=== PATIENT | male | born 1935 ===

== ENCOUNTER 2018-05-23 08:04 | Outpatient (RCR) | payer MEDICARE, OTHER, SELFPAY ==
--- NOTE | 2018-05-23 09:18 | PTTR_ITS ---
DATE: 05/23/18 SUBJECTIVE: Patient states that he is doing okay today and has found that the exercises are helpful when he performs them. He still has intermittent pain at times but can manage. OBJECTIVE: Manual therapy: ([id number]): Patient was first assessed for movement quality through both the right and left knee and hip. His hip motion appears sound to end limit of both rotations internal and external and hip flexion to 95 degrees. His knee motion is sound for terminal lock out at the right without pain and knee flexion on the right to 130 degrees approximately. Patient then assessed through the left knee with terminal lock out having some mild pain but he is able to approximate to 0 degrees. His knee flexion is mildly limited just shy of the contralateral limb with mild tenderness over the superior pole of the patella. He is then mobilized with light long axis traction through the ankle, knee and hip of the left lower extremity. Mild active isolated stretching is performed through the left hamstrings and patient placed in sitting. From sitting he is mobilized with anterior glide of the tibia on a fixed femur and tibial torsion mobilized through the limits of internal and external tibial rotation. Gentle 10-60 degree knee ROM is performed before patient returning to standing. Direct treatment time: 30 minutes of direct patient care.
== END 2018-06-13 23:59 | disposition home or self-care (01) ==
LOC: PT 08:04
PROVIDERS: Referring Provider Orthopaedic Surgery; Visit Provider Orthopaedic Surgery
DX: M25.562 Pain in left knee (principal); M17.12 Unilateral primary osteoarthritis, left knee
CPT/HCPCS: 97140

== ENCOUNTER 2022-04-05 13:30 | Outpatient (REF) | payer MEDICARE, OTHER, SELFPAY ==
[2022-04-05 16:08] LABS: ALT 23 U/L (16-63); AST 25 U/L (15-37); Albumin 3.8 g/dL (3.4-5.0); Alkaline Phosphatase 57 U/L (46-116); BUN 29 mg/dL (7-18); Bilirubin, Total 0.9 mg/dL (0.2-1.0); CREATININE 1.5 mg/dL (0.70-1.30); Calcium 9.7 mg/dL (8.5-10.1); Chloride 100 mmol/L (98-107); Estimated GFR 44.48 (mL/min/1.73m2); Glucose 104 mg/dL (74-106); Potassium 4.4 mmol/L (3.5-5.1); Sodium 135 mmol/L (136-145); Total Protein 7.3 g/dL (6.4-8.2)
== END 2022-04-05 13:31 | disposition home or self-care (01) ==
LOC: NCHCN 13:30
PROVIDERS: Visit Provider Nurse Practitioner Family
DX: I10 Essential (primary) hypertension (principal)
CPT/HCPCS: 80053